=== PATIENT | female | born 1960 | race Asian ===

== ENCOUNTER 2020-09-27 05:38 | Emergency (ER) | payer OTHER ==
[~2020-09-27] VITALS: Ht 157.5 cm; Wt 68.0 kg
[2020-09-27] MEDS ORDERED: ACETAMINOPHEN ES 500 MG TABLET PO ONE (05:45)
--- NOTE | 2020-09-27 05:52 | NUR ---
at bedside for assessment
[2020-09-27] MEDS ORDERED: ACETAMINOPHEN ES 500 MG TABLET ONE (06:07)
--- NOTE | 2020-09-27 07:02 | NUR ---
Patient given X-ray results at this time
--- NOTE | 2020-09-27 07:06 | NUR ---
Patient discharged to home in stable condition. Able to ambulate with steady gait, took all belongings. Written and verbal after care instructions given. Patient verbalizes understanding of instructions. Stressed follow up or return to ER for worsening s/s.
[2020-09-27 07:07] VITALS: BP 129/84
== END 2020-09-27 07:08 | disposition home or self-care (01) ==
LOC: ER 05:41
DX: S29.011A Strain of muscle and tendon of front wall of thorax, initial encounter (principal); W22.8XXA Striking against or struck by other objects, initial encounter; Y92.239 Unspecified place in hospital as the place of occurrence of the external cause; Y99.0 Civilian activity done for income or pay; Z88.6 Allergy status to analgesic agent; M79.661 Pain in right lower leg
CPT/HCPCS: 71101; A4663; A9150